=== PATIENT | male | born 1955 | race Caucasian/White ===

== ENCOUNTER 2020-11-21 13:46 | Emergency (ER) | payer MEDICARE, OTHER, SELFPAY ==
[2020-11-21 14:12] VITALS: BP 135/79; PULSE 78; RESP 20; TEMP 36.9; O2SAT 95
--- NOTE | 2020-11-21 14:17 | ED.WOUNDLAC ---
HPI - Wound/Laceration General Chief Complaint: Wound/Laceration Stated Complaint: laceration to finger Source: patient and family Mode of arrival: ambulatory Limitations: no limitations History of Present Illness HPI narrative: patient presents with a flap laceration to the medial aspect of his right 5th finger well-approximated currently not bleeding no pain or tenderness has good range of motion with no numbness or tingling. Onset (ago): hour(s) Location: other ( right 5th finger flap laceration) Related Data Allergies Allergy/AdvReac Type Severity Reaction Status Date / Time No Known Allergies Allergy Verified 11/21/20 14:19 Review of Systems Review of Systems: All systems reviewed & are unremarkable except as noted in HPI and below [facility] Past Medical History Medical History HTN (hypertension) Exam Const: General: no acute distress and alert Orientation/consciousness: patient oriented x3 HENMT: Head: normal to inspection Eyes: Conjunctivae: conjunctivae normal Pupils: Equal, round and reactive pupils present Chest: Chest palpation & inspection: normal inspection of the chest Resp: Effort & Inspection: normal respiratory effort Auscultation: clear to auscultation bilaterally Cardio: Rate: regular rate Rhythm: regular rhythm Urinary Catheter: Urinary Catheter: patent and draining Skin: Other: flap laceration medial aspect of his right 5th finger Neuro: General: patient oriented x3 Extrem: General: normal to inspection and no pedal edema Psych: Mental Status: mental status grossly normal Affect: normal affect Attitude: cooperative Course Course Emergency Course: Dermabond used on his laceration to the right 5th finger. Patient is up-to-date with his tetanus. Procedures Laceration Laceration 1: Date: 11/21/20 Time: 14:19 Site: other ( Right 5th finger) Side (If applicable): right Size (cm): 2 Description: flap Depth: simple, single layer Pre-repair: wound explored, irrigated and irrigated extensively ====== Skin Level ====== Skin layer closed with: dermabond ====== Subcutaneous Layer ====== ====== Muscle Layer ====== ====== Tendon Layer ====== Critical Care Time Critical Care Time Critical Care Time: No Discharge Plan Discharge Clinical Impression: Laceration Patient Disposition: Home, Self-Care Condition: Stable Instructions: Antibiotic Form, Laceration (ED) Additional Instructions: follow-up with primary care physician if symptoms persist or worsen. Follow-up/Referrals: Harms,Suhail Jenkins M.D. [Primary Care Provider] - Time of Disposition: 14:20
[2020-11-21 14:22] VITALS: BP 114/88; PULSE 71; RESP 20; O2SAT 95
== END 2020-11-21 14:25 | disposition home or self-care (01) ==
PROVIDERS: Emergency Provider Emergency Medicine; PCP Family Medicine
DX: S61.216A Laceration without foreign body of right little finger without damage to nail, initial encounter (principal); W45.8XXA Other foreign body or object entering through skin, initial encounter
CPT/HCPCS: 12001; 99282